=== PATIENT | female | born 1990 | race Caucasian/White ===

== ENCOUNTER 2022-11-04 12:35 | Emergency (ER) | payer BC ==
[~2022-11-04] VITALS: Ht 162.6 cm; Wt 70.6 kg
[2022-11-04 12:36] VITALS: TEMP 98.7
[2022-11-04] MEDS ORDERED: BUPR150T12 PO (12:45)
[2022-11-04] MEDS ORDERED: LEXA5TAB13 PO (12:45)
[2022-11-04] MEDS ORDERED: IBUP-1022 PO (13:29)
[2022-11-04] MEDS ORDERED: DICL20GE TOP (15:38)
[2022-11-04 15:50] VITALS: BP 150/98; O2SAT 100
== END 2022-11-04 15:58 | disposition home or self-care (01) ==
LOC: M ED 12:35
DX: S89.91XA Unspecified injury of right lower leg, initial encounter (principal); Y93.01 Activity, walking, marching and hiking; Y92.838 Other recreation area as the place of occurrence of the external cause; Z79.899 Other long term (current) drug therapy